=== PATIENT | female | born 1955 | race Caucasian/White ===

== ENCOUNTER 2016-11-07 11:32 | Day surgery (SDC) | payer OTHER ==
[~2016-11-07 11:32] MED LIST: BUPIVACAINE 0.5% 30 ML SDV ONE; ceFAZolin 2 GM/DEXTROSE 100 ML IV ONE
--- NOTE | 2016-11-07 12:05 | PDGENHP ---
History & Physical Chief Complaint: right foot pain History of Present Illness: long standing hallux rigidus and hammertoe that failed conservative managment Pertinent Past, Social, Family History: depression, mitral valve problems Relevant Physical Exam: right great toe pain and stiffness, 2nd h toe deformity Cardiorespiratory Assessment: heart rrr. lungsclear. or for r 1st mtp fusion and 2nd h toe
[2016-11-07] MEDS ORDERED: LIDOCAINE 1% 2 ML INJ ONE (12:49)
[2016-11-07] MEDS ORDERED: BUPIVACAINE/EPI 0.25% 30 ML SDV ONE (12:54)
[2016-11-07] MEDS ORDERED: BUPIVACAINE/EPI 0.5% 30 ML SDV ONE (12:54)
[2016-11-07] MEDS ORDERED: MIDAZOLAM 2 MG/2 ML VIAL ONE (12:59)
[2016-11-07] MEDS ORDERED: fentaNYL 100 MCG/2 ML INJ ONE (13:00)
[2016-11-07] MEDS ORDERED: LIDOCAINE 1% 2 ML INJ ID PRN (13:10)
[2016-11-07] MEDS ORDERED: LR 1,000 ML IV ONE (13:10)
[2016-11-07] MEDS ORDERED: CEFAZOLIN 2 GM/DEXTROSE/100 ML BAG IV ONE (13:19)
[2016-11-07] MEDS ORDERED: DEXAMETHASONE 4 MG/ML VIAL ONE ×2 (13:47)
[2016-11-07] MEDS ORDERED: PROPOFOL 200 MG/20 ML VIAL ONE (13:47)
[2016-11-07] MEDS ORDERED: METOCLOPRAMIDE 10 MG/2 ML VIAL ONE (13:48)
[2016-11-07] MEDS ORDERED: LIDOCAINE 2% 100 MG/5 ML SYR ONE (13:48)
--- NOTE | 2016-11-07 14:23 | PDANEPAE ---
ANE Past Medical History - Cardiovascular History Hx Hypertension: No Hx Arrhythmias: No Hx Chest Pain: Yes Hx Coronary Artery / Peripheral Vascular Disease: No Hx CHF / Valvular Disease: No Hx Palpitations: No Cardiovascular History Comment: BP RUNS LOW. HR RUNS LOW. MITRAL VALVE PROLAPSE- USES ABX PRIOR TO DENTAL WORK AND CLEANINGS. SEE'S DOUCETT BUT HASN' T SEEN IN YEARS - Pulmonary History Hx COPD: No Hx Asthma/Reactive Airway Disease: No Hx Recent Upper Respiratory Infection: No Hx Oxygen in Use at Home: No Hx Sleep Apnea: No Sleep Apnea Screening Result - Last Documented: Negative - Neurologic History Hx Cerebrovascular Accident: No Hx Seizures: No Hx Dementia: No - Endocrine History Hx Diabetes: No - Renal History Hx Renal Disorders: No - Liver History Hx Hepatic Disorders: No - Neurological & Psychiatric Hx Hx Neurological and Psychiatric Disorders: Yes Neurological / Psychiatric History Comment: DEPRESSION - Cancer History Hx Cancer: No - Congenital Disorder History Hx Congenital Disorders: No - GI History Hx Gastrointestinal Disorders: No - Other Health History Other Health History: WEARS READING GLASSES. BRUSIES EASILY - Chronic Pain History Chronic Pain: No - Surgical History Prior Surgeries: BILATERAL HAMMER TOE. LEFT BUNIONECTOMY CRISTÓBAL WARREN Review of Systems - Exercise capacity METS (RN): 4 METS - Systems Cardiac: Reports: other (MVP) ANE Patient History - Allergies Allergies/Adverse Reactions: sulfamethoxazole [From Bactrim] Allergy (Verified 10/30/16 15:09) Hives trimethoprim [From Bactrim] Allergy (Verified 10/30/16 15:09) Hives - Home Medications Home Medications: Flonase Allergy Relief PRN 10/30/16 [Last Taken 11/05/16] Herbals/Supplements -Info Only 10/30/16 [Last Taken 10/31/16] Loratadine PRN 10/30/16 [Last Taken 11/05/16] Quetiapine Fumarate HS 10/30/16 [Last Taken 11/06/16] lamOTRIGine 10/30/16 [Last Taken 11/07/16 06:30] Nac 11/07/16 [Last Taken 11/06/16] - NPO status NPO Since - Liquids (Date): 11/07/16 NPO Since - Liquids (Time): 06:30 NPO Since - Solids (Date): 11/06/16 NPO Since - Solids (Time): 21:00 - Smoking Hx Smoking Status: Never smoked - Family Anes Hx Family Hx Anesthesia Complications: NONE ANE Labs/Vital Signs - Vital Signs Blood Pressure: 96/66 Heart Rate: 47 Respiratory Rate: 16 O2 Sat (%): 98 Height: 175.26 cm Weight: 52.163 kg ANE Physical Exam - Airway Mallampati Score: Class 1 Mouth exam: normal dental/mouth exam - Pulmonary Pulmonary: no respiratory distress - Cardiovascular Cardiovascular: regular rate and rhythym - ASA Status ASA Status: I ANE Anesthesia Plan Anesthesia Plan: GA w LMA [facility] Anesthesia: adductor canal FNB, popliteal SNB
[2016-11-07] MEDS ORDERED: LR 500 ML IV PRN (15:37)
[2016-11-07] MEDS ORDERED: fentaNYL 100 MCG/2 ML INJ IVP PRN (15:37)
[2016-11-07] MEDS ORDERED: ONDANSETRON 4 MG/2 ML VIAL IVP PRN (15:37)
[2016-11-07] MEDS ORDERED: NALOXONE HCL 0.4 MG/ML INJ IVP PRN (15:37)
--- NOTE | 2016-11-07 15:38 | POSTOPPROG ---
Post Op Note Date of Operation: 11/07/16 Surgeon: Kong Ross Basket Hand Braider: Archie Anesthesiologist: Stephani Anesthesia: GET(General Endotracheal) Pre-op Diagnosis: right hallux rigidus, 2nd h toe Post-op Diagnosis: same Indication: above Procedure: 1st mtp fusion , 2nd h toe correction Inf/Abcess present in the surg proc area at time of surgery?: No EBL: Minimal
--- NOTE | 2016-11-07 15:39 | POSTANESTH ---
Post Anesthetic Evaluation Respiratory Status: Normal, Stable Level of Consciousness/Mental Status: Can Participate in Eval Pain Control: Adequate, Prn Tx Ordered Nausea/Vomiting Control: Adequate, Prn Tx Ordered Complications Possibly Related to Anesthesia: None Noted
[2016-11-07 16:36] VITALS: TEMP 97.5
[2016-11-07 17:17] VITALS: BP 102/55; PULSE 50; RESP 17; O2SAT 98
--- NOTE | 2016-11-07 21:44 | GOP ---
[f rep st] OPERATIVE REPORT DATE OF OPERATION: 11/07/2016 SURGEON: Kong Ross MD PARTICLE BOARD SUPERVISOR: Catrachito Almanza SA ANESTHESIA: General with popliteal and saphenous block. PREOPERATIVE DIAGNOSIS: 1. 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 2. Right 2nd hammertoe deformity. POSTOPERATIVE DIAGNOSIS: 1. 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 2. Right 2nd hammertoe deformity. PROCEDURE PERFORMED: 1. Right 1st metatarsophalangeal fusion. 2. Right 2nd hammertoe correction. 3. Right 2nd hammertoe capsulorrhaphy. FINDINGS: SPECIMENS: None. ESTIMATED BLOOD LOSS: 5 mL. INDICATIONS: This is a 61-year-old female with symptomatic DJD and recurrent 2nd hammertoe. She failed conservative management. Counseled on the risks and benefits of operative intervention, and she elected to proceed. Informed consent was obtained. All questions were answered. Discussed risks of recurrence, nonunion, malunion, continued pain, malposition, nerve injury, nerve irritation, wound complications. She elected to proceed. DESCRIPTION OF PROCEDURE: She was taken the operative suite after block administered per Anesthesia. 2 g Ancef were given. She was put to sleep. A time-out was performed verifying the patient, side, site, location and there was agreement with the team. Sterilely prepped and draped in the usual fashion. The Esmarch was utilized. Theprocedure was begun by making an incision over the previous incision over the 2nd toe. Dissected down to the joint. There was significant scar tissue and I freed the 2nd toe joint. Performed resection of this with a sagittal saw after preparing the joint for fusion. We made an incision over the great toe. Took the EHL laterally keeping in its sheath. Opened the capsule. This was extremely arthritic. Redundant capsule. Removed excess capsule and osteophytes. Exposed the great toe completely. I then used a guide pin in the metatarsal and used the cup type reamer. I then used a cone type reamer with the guide pin in the proximal phalanx and further prepared this with holes in the bone as well as rongeur and removing excess tissue. I placed a guide pin in the metatarsal and looked at this flouroscopic and clinicall at the metatarsal head. I then reduced the toe in appropriate position. Placed a guide pin in the phalanx. Checked this fluoroscopically and clinically as well as the plate with the foot and ankle in dorsiflexion. Liked this clinically and radiographically. I then drilled this and placed a compression screw achieving compression across the joint. I then drilled the 2nd toe, both the proximal phalanx and middle phalanx out the tip of the toe for the retro screw. I placed a retro screw in the proximal phalanx , then reduced the distal phalanx on this with a screwdriver and then used the retro action of the screw to bring the joint together. This achieved good alignment with the toe clinically. Her toe was still somewhat angulated radiographically but this did match other toes as well as her great toe. I felt this was necessary to make room for the toe. The plate was then selected and pinned this in place. Checked this fluoroscopically. I then placed cortical screws on both sides of the joint and locking screws to create a stable construct. Final x-rays were checked. This was checked clinically as well and I liked the position. The tourniquet was released. She was irrigated. Hemostasis was obtained. She was closed with 0 Vicryl, 2-0 Vicryl, 3-0 Quill, and then 3-0 nylon in the toe. She was taken to PACU in a dressing in stable condition. IMPLANTS: Arthrex 34 mm x 3.5 headless compression screw, short MTP locking plate, and a 20 mm retro screw in the 2nd toe. COMPLICATIONS: None. DRAINS: None. CONDITION: Stable. /[id number]/MODL MTDD
== END 2016-11-07 17:30 | disposition home or self-care (01) ==
LOC: FSGY 11:32
PROVIDERS: ATTEND Orthopaedic Surgery
PROC: 0SGM04Z Fusion of Right Metatarsal-Phalangeal Joint with Internal Fixation Device, Open Approach (ICD-10-PCS; principal; 2016-11-07 13:00)
PROC: 0SGP04Z Fusion of Right Toe Phalangeal Joint with Internal Fixation Device, Open Approach (ICD-10-PCS; principal; 2016-11-07 13:00)
DX: M20.21 Hallux rigidus, right foot (principal); M20.41 Other hammer toe(s) (acquired), right foot; M19.071 Primary osteoarthritis, right ankle and foot; I34.9 Nonrheumatic mitral valve disorder, unspecified; F32.9 Major depressive disorder, single episode, unspecified
CPT/HCPCS: 28285; 28289; C1769; C1713; J0690; J1100; J2001; J2250; J2704; J2765; J3010

== ENCOUNTER → 2017-01-02 | Outpatient (CLI) | payer OTHER | LOC: FIMAGING 15:35 | DX: Z12.31 Encounter for screening mammogram for malignant neoplasm of breast (principal); Z80.3 Family history of malignant neoplasm of breast | CPT/HCPCS: G0202 ==